=== PATIENT | female | born 1955 | race Caucasian/White ===

== ENCOUNTER 2018-11-06 12:04 | Day surgery (SDC) | payer OTHER ==
[2018-11-06] MEDS ORDERED: LIDOCAINE 2% (SDV) 5 ML INJ (13:55)
[2018-11-06] MEDS ORDERED: PROPOFOL 20 ML (13:55)
[2018-11-06] MEDS ORDERED: MIDAZOLAM 1 MG/ML 2 ML INJ (13:56)
[2018-11-06] MEDS ORDERED: FENTAnyl 50 MCG/ML VIAL (13:56)
== END 2018-11-06 16:11 | disposition home or self-care (01) ==
LOC: GIL 12:04
DX: Z12.11 Encounter for screening for malignant neoplasm of colon (principal); D12.0 Benign neoplasm of cecum; K64.8 Other hemorrhoids; I10 Essential (primary) hypertension
CPT/HCPCS: 45380; 88305